=== PATIENT | female | born 1980 | race African-American/Black ===

== ENCOUNTER 2016-11-09 16:32 | Emergency (ER) | payer OTHER ==
[~2016-11-09] VITALS: Ht 162.6 cm; Wt 58.0 kg
[2016-11-09 16:37] VITALS: Ht 162.6 cm; Wt 58.0 kg
[2016-11-09] MEDS ORDERED: GUAI-637 PO (17:13)
[2016-11-09] MEDS ORDERED: BENZ1LOZ49 MM (17:13)
[2016-11-09] MEDS ORDERED: AZIT250T94 PO (17:13)
--- NOTE | 2016-11-09 17:44 | ERD ---
ER Documentation Chief Complaint Date/Time DATE: 11/09/16 TIME: 17:37 Chief Complaint pt bib family with c/o cough and sore throat for a wk HPI The patient is a 36-year-old female here with sore throat, productive cough of green sputum, and congestion for approximately 2-3 days. She stated that she had a fever approximately 4 days ago, however it resolved within one day. She has tried Vicks VapoRub, cough syrup, and DayQuil with relief. She reports sick contacts in the home with same symptoms. She denies smoking. She denies fever, chills, nausea, vomiting, diarrhea, headache, sinus pain, earache, dizziness, chest pain, abdominal pain, dysuria, flank pain, any change in bladder or bowel habits or function, or any other symptoms. ROS All systems reviewed and are negative except as per history of present illness. Medications Home Meds Active Scripts Benzocaine/Menthol* (Chloraseptic* Max Lozenge) 1 Each Lozenge, 1 LOZENGE MM Q3H Y for SORE THROAT for 7 Days, LOZENGE Prov:PAULO CHOPRA, SHANKAR 11/09/16 Guaifenesin (Guaifenesin) 100 Mg/5 Ml Liquid, 200 MG PO Q4H Y for COUGH for 7 Days, ML Prov:PAULO CHOPRA NP 11/09/16 Azithromycin* (Zithromax*) 250 Mg Tablet, 250 MG PO .ZPACK DIRECTED, #6 TAB TAKE 500 MG (2 TABS) THE FIRST DAY THEN 250 MG (1 TAB) DAYS 2-5 Prov:PAULO CHOPRA NP 11/09/16 Allergies Allergies: Coded Allergies: No Known Allergy (Unverified , 11/09/16) Physical Exam Vitals Vital Signs Date Time Temp Pulse Resp B/P Pulse Ox O2 Delivery O2 Flow Rate FiO2 11/09/16 16:37 98.1 99 16 120/71 99 Physical Exam INITIAL VITAL SIGNS: Reviewed by me, afebrile, oximetry 99% on room air GENERAL: Alert. Well developed and well nourished. No acute distress. Nontoxic appearing. HEAD: Head is normocephalic. Atraumatic. EYES: EOMI. No scleral icterus. No conjunctival injection. No clear or purulent drainage. ENT: External ears, nose, and mouth normal. Ear canals with scant cerumen. Tympanic membranes without erythema, bulging, or effusion. Nasal passages patent and without rhinorrhea. Throat with trace erythema and no exudates. Tonsils +2 and with trace erythema and no exudates. Airway patent. Moist mucous membranes. NECK: Supple. Full range of motion. Trachea midline. No lymphadenopathy. RESPIRATORY: No tachypnea. + Bilateral upper lobe rhonchi that cleared with coughing. No wheezing, rales, or stridor. CV: Regular rate and rhythm. No murmurs, rubs, or gallops ABDOMEN: Soft, non-distended, non-tender. No guarding. Bowel sounds normal in all quadrants. BACK: No CVA tenderness. Full ROM. EXTREMITIES: No obvious deformity. No clubbing or cyanosis. No edema. SKIN: Warm and dry. No diaphoresis. No obvious rashes or lesions. NEUROLOGIC: Alert and oriented x 3. Appropriate. Face is symmetric. Speech is normal. Moves all extremities equally. Procedures/[facility] EMERGENCY DEPARTMENT COURSE / MEDICAL DECISION MAKING: The patient is a 36 female here with sore throat, productive cough of green sputum, and congestion for approximately 2-3 days. Differential diagnosis was: viral syndrome, URI, bronchitis, pneumonia, asthma, meningitis, sepsis, strep pharyngitis, peritonsillar abscess, mono, and others. Final impression: Bronchitis Viral pharyngitis Given that the patient is well-appearing, nontoxic, afebrile, oximetry 99% on room air, no tachypnea, no tachycardia, no respiratory distress, is easily able to swallow liquids and solids, no clinical evidence of purulent exudates in the oropharynx, no evidence of peritonsillar abscess, no hot potato voice, no drooling, no neck soreness or stiffness, no abdominal pain, no lymphadenopathy, and a benign physical exam, I have low suspicion at this time for pneumonia, asthma, meningitis, sepsis, strep pharyngitis, peritonsillar abscess, mono, or any other serious cause of the patient's symptoms. The patient is a good candidate for outpatient care and will be discharged with instructions to follow up with their PMD in 2-3 days. I explained the findings and plan to the patient, who expressed verbal understanding and agreed with plan for discharge and follow up. The patient was given after care instructions and welcomed to return to the ED for any new or worsening symptoms. The patient was stable at the time of discharge. Rx. Guaifenesin, Z-Claudio, Chloraseptic lozenges. Departure Diagnosis: Primary Impression: Pharyngitis Pharyngitis/tonsillitis etiology: other specified organisms Qualified Code: J02.8 - Pharyngitis due to other organism Additional Impression: Bronchitis Condition: Stable Patient Instructions: Bronchitis, Antiobiotic Treatment (Adult), Pharyngitis, Viral Referrals: your doctor Additional Instructions: Call your primary care doctor TOMORROW for an appointment during the next 2-3 days.See the doctor sooner or return here if your condition worsens before your appointment time. PAULO CHOPRA NP Nov 09, 2016 17:44
== END 2016-11-09 17:14 | disposition home or self-care (01) ==
LOC: E/R 16:32
DX: J02.8 Acute pharyngitis due to other specified organisms (principal); J20.9 Acute bronchitis, unspecified; B97.89 Other viral agents as the cause of diseases classified elsewhere
CPT/HCPCS: 99283

== ENCOUNTER 2017-02-27 08:02 | Emergency (ER) | payer OTHER ==
[~2017-02-27] VITALS: Ht 162.6 cm; Wt 53.0 kg
[~2017-02-27 08:02] MED LIST: AZIT250T94 PO; BENZ1LOZ49 MM; GUAI-637 PO
[2017-02-27 08:06] VITALS: Ht 162.6 cm; Wt 53.0 kg
--- NOTE | 2017-02-27 08:49 | ERD ---
ER Documentation Chief Complaint Date/Time DATE: 02/27/17 TIME: 08:46 Chief Complaint rt flank pain , lower abd pain x 4 days HPI 36-year-old female comes emergency department with right-sided lower back pain, more abdominal pain and constipation for the past 4 days. Patient reports that her last bowel movement was 4 days ago, she has had diffuse pain well. She also reports that she has had cloudy colored urine. She has right lower back pain, denies flank pain, hematuria. She has not had any fever, chills, vomiting or diarrhea. ROS All systems reviewed and are negative except as per history of present illness. Medications Home Meds Active Scripts Docusate Sodium* (Colace*) 100 Mg Capsule, 100 MG PO TID, #30 CAP Prov:DAVID LUCERO PA-C 02/27/17 Magnesium Citrate* (Magnesium Citrate*) 296 Ml Solution, 296 ML PO ONCE, #1 BOTTLE Prov:DAVID LUCERO PA-C 02/27/17 Cephalexin* (Keflex*) 500 Mg Capsule, 500 MG PO TID for 7 Days, CAP Prov:DAVID LUCERO PA-C 02/27/17 Benzocaine/Menthol* (Chloraseptic* Max Lozenge) 1 Each Lozenge, 1 LOZENGE MM Q3H Y for SORE THROAT for 7 Days, LOZENGE Prov:PAULO CHOPRA, EXECUTIVE ADVISOR 11/09/16 Guaifenesin (Guaifenesin) 100 Mg/5 Ml Liquid, 200 MG PO Q4H Y for COUGH for 7 Days, ML Prov:PAULO CHOPRA, EXECUTIVE ADVISOR 11/09/16 Azithromycin* (Zithromax*) 250 Mg Tablet, 250 MG PO .PiedadPACK DIRECTED, #6 TAB TAKE 500 MG (2 TABS) THE FIRST DAY THEN 250 MG (1 TAB) DAYS 2-5 Prov:PAULO CHOPRA, EXECUTIVE ADVISOR 11/09/16 Allergies Allergies: Coded Allergies: No Known Allergy (Unverified , 11/09/16) PMhx/Soc Medical and Surgical Hx: pt denies Medical Hx, pt denies Surgical Hx Hx Alcohol Use: Yes Hx Substance Use: No Hx Tobacco Use: No Smoking Status: Never smoker Physical Exam Vitals Vital Signs Date Time Temp Pulse Resp B/P Pulse Ox O2 Delivery O2 Flow Rate FiO2 02/27/17 08:06 98.2 66 18 107/55 100 Physical Exam General: Well-developed, well-nourished. The patient appears in no acute distress. HEENT: Head is normocephalic, atraumatic. No scleral icterus. Neck: Supple. Nontender. Lungs: Clear to auscultation. Normal air movement. Heart: Regular rate and rhythm. S1 and S2 are normal. No murmurs, gallops, or rubs. Abdomen: Soft, nontender, nondistended. Bowel sounds are normoactive. No CVA tenderness Extremities: No clubbing or cyanosis. Normal pulses. Moving extremities x 4. No weakness. Neurologic: Alert and oriented 3. No focal deficits. Skin: Normal turgor. No rash or lesions. Result Diagram: 02/27/17 0848 02/27/17 0848 Results 24 hrs Laboratory Tests Test 02/27/17 08:47 02/27/17 08:48 Urine Color LT. YELLOW Urine Clarity CLEAR Urine pH 5.5 Urine Specific [place] 1.025 Urine Ketones NEGATIVE Urine Nitrite NEGATIVE Urine Bilirubin NEGATIVE Urine Urobilinogen 0.2 E.U./dL Urine Leukocyte Esterase 1+ Urine Microscopic RBC 0-2/HPF Urine Microscopic WBC 2-5/HPF Urine Squamous Epithelial Cells MODERATE Urine Amorphous Urates FEW Urine Bacteria FEW Urine Hemoglobin TRACE Urine Glucose NEGATIVE% Urine Total Protein NEGATIVE White Blood Count 7.210^3/ul Red Blood Count 4.0710^6/ul Hemoglobin 13.2g/dl Hematocrit 40.2% Mean Corpuscular Volume 98.8fl Mean Corpuscular Hemoglobin 32.4pg Mean Corpuscular Hemoglobin Concent 32.8g/dl Red Cell Distribution Width 12.3% Platelet Count 13211^3/UL Mean Platelet Volume 9.5fl Neutrophils % 52.7% Lymphocytes % 36.1% Monocytes % 7.9% Eosinophils % 2.6% Basophils % 0.6% Nucleated Red Blood Cells % 0.0/100WBC Neutrophils # 3.810^3/ul Lymphocytes # 2.610^3/ul Monocytes # 0.610^3/ul Eosinophils # 0.210^3/ul Basophils # 0.010^3/ul Nucleated Red Blood Cells # 0.010^3/ul Sodium Level 139mmol/L Potassium Level 3.9mmol/L Chloride Level 107mmol/L Carbon Dioxide Level 26mmol/L Anion Gap 10 Blood Urea Nitrogen 10mg/dl Creatinine 0.84mg/dl Glucose Level 72mg/dl Calcium Level 9.2mg/dl Total Bilirubin 0.2mg/dl Direct Bilirubin 0.00mg/dl Indirect Bilirubin 0.2mg/dl Aspartate Amino Transf (AST/SGOT) 20IU/L Alanine Aminotransferase (ALT/SGPT) 28IU/L Alkaline Phosphatase 56IU/L Total Protein 7.4g/dl Albumin 4.2g/dl Globulin 3.20g/dl Albumin/Globulin Ratio 1.31 Lipase 54U/L PROCEDURE: XR Abdomen CLINICAL INDICATION: Flank pain, constipation TECHNIQUE: An AP supine radiograph of the abdomen was submitted. COMPARISON: None FINDINGS: Substantial stool seen to the colon but there is no evidence of bowel obstruction. No organomegaly or discrete mass is identified. Multiple phleboliths are seen within the left and right pelvis. The osseous elements appear unremarkable. IMPRESSION: 1. Excessive stool seen to the colon without evidence of bowel obstruction. 2. Multiple calcifications are seen in the pelvis most compatible with phleboliths. Physician Mag Date Time Electronically viewed and signed by Physician Mag on 02/27/2017 09:40 RH/ CC: DAVID LUCERO PA-C Procedures/[facility] 36-year-old female comes in with lower abdominal pain, lower back pain for the past 4 days and cloudy urine. Patient's KUB is consistent with constipation. I did offer the patient magnesium citrate or medicine for constipation at this time she states that she would prefer to take this at home. She does not show any signs of acute appendicitis, keeping her titers, labs are unremarkable. Urine is reported to be cloudy, patient will be treated for urinary tract infection that she has 1+ leukocyte esterase and a urine analysis. Departure Diagnosis: Primary Impression: Constipation Additional Impression: UTI (urinary tract infection) Condition: Good DAVID LUCERO PA-C February 27, 2017 08:49
[2017-02-27 08:55] LABS: ADD SCAN DIFF NO
[2017-02-27 08:56] LABS: BASOPHILS % 0.6 % (0.0-2.0); EOSINOPHILS # 0.2 10^3/ul (0.0-0.5); EOSINOPHILS % 2.6 % (0.0-7.0); HEMATOCRIT 40.2 % (37.0-47.0); HEMOGLOBIN 13.2 g/dl (12.0-16.0); LYMPHOCYTES # 2.6 10^3/ul (0.8-2.9); LYMPHOCYTES % 36.1 % (15.0-51.0); MEAN CORPUSCULAR HEMOGLOBIN 32.4 pg (29.0-33.0); MEAN CORPUSCULAR HGB CONC 32.8 g/dl (32.0-37.0); MEAN CORPUSCULAR VOLUME 98.8 fl (82.0-101.0); MEAN PLATELET VOLUME 9.5 fl (7.4-10.4); MONOCYTE # 0.6 10^3/ul (0.3-0.9); MONOCYTES % 7.9 % (0.0-11.0); NEUTROPHIL # 3.8 10^3/ul (1.6-7.5); NEUTROPHILS % 52.7 % (39.0-77.0); PLATELET COUNT 248 10^3/UL (140-415); RED BLOOD COUNT 4.07 10^6/ul (4.20-5.40); RED CELL DISTRIBUTION WIDTH 12.3 % (11.5-14.5); WHITE BLOOD COUNT 7.2 10^3/ul (4.8-10.8)
[2017-02-27 08:58] LABS: ADD UMIC YES; URINE BILIRUBIN (Dip) NEGATIVE (NEGATIVE); URINE BLOOD (Dip) TRACE (NEGATIVE); URINE COLOR LT. YELLOW (YELLOW); URINE GLUCOSE (Dip) NEGATIVE (NEGATIVE); URINE KETONES (Dip) NEGATIVE (NEGATIVE); URINE LEUKOCYTE ESTERASE (Dip) 1+ (NEGATIVE); URINE NITRITE (Dip) NEGATIVE (NEGATIVE); URINE TOTAL PROTEIN (Dip) NEGATIVE (NEGATIVE); URINE UROBILINOGEN (Dip) 0.2 E.U./dL (0.1-1.0)
[2017-02-27 09:12] LABS: BACTERIA,URINE FEW; SQUAMOUS EPITHELIAL CELL,UR MODERATE; URINE RBCS 0-2 /HPF (0)
[2017-02-27 09:27] LABS: ALBUMIN 4.2 g/dl (3.3-4.9); ALBUMIN/GLOBULIN RATIO 1.31; BILIRUBIN,INDIRECT 0.2 mg/dl (0-1.1); BILIRUBIN,TOTAL 0.2 mg/dl (0.2-1.3); CALCIUM 9.2 mg/dl (8.4-10.2); CREATININE 0.84 mg/dl (0.44-1.00); POTASSIUM 3.9 mmol/L (3.5-5.1); TOTAL PROTEIN 7.4 g/dl (6.1-8.1)
--- NOTE | 2017-02-27 09:40 | RADRPT ---
PROCEDURE: XR Abdomen CLINICAL INDICATION: Flank pain, constipation TECHNIQUE: An AP supine radiograph of the abdomen was submitted. COMPARISON: None FINDINGS: Substantial stool seen to the colon but there is no evidence of bowel obstruction. No organomegaly or discrete mass is identified. Multiple phleboliths are seen within the left and right pelvis. The osseous elements appear unremarkable. IMPRESSION: 1. Excessive stool seen to the colon without evidence of bowel obstruction. 2. Multiple calcifications are seen in the pelvis most compatible with phleboliths. Physician Mag Date Time Electronically viewed and signed by Lizzy Shannon Physician on 02/27/2017 09:40 RH/
[2017-02-27] MEDS ORDERED: DOCU-144 PO (09:56)
[2017-02-27] MEDS ORDERED: CEPH-443 PO (09:56)
[2017-02-27] MEDS ORDERED: MAGN296S40 PO (09:56)
== END 2017-02-27 11:16 | disposition home or self-care (01) ==
LOC: FTE 08:02
DX: K59.00 Constipation, unspecified (principal); N39.0 Urinary tract infection, site not specified
CPT/HCPCS: 36415; 74000; 80053; 81001; 83690; 85025; Z7502